=== PATIENT | female | born 1965 | race Caucasian/White ===

== ENCOUNTER 2016-11-07 11:23 | Emergency (ER) | payer BC, MEDICAID ==
[2016-11-07 11:25] VITALS: BMI 36.6
[2016-11-07 11:26] VITALS: RESP 18; TEMP 97.8
[2016-11-07] MEDS ORDERED: Sodium Chloride 0.9% 1,000 ML IV STA (12:01)
[2016-11-07 12:44] LABS: BASO % 0.8 % (0.0-2.0); EOS # 0.3 K/uL (0.0-0.7); EOS % 5.3 % (0.0-4.0); HEMATOCRIT 41.2 % (34.0-47.0); LYMPH # 1.2 K/uL (1.0-4.3); LYMPH % 22.1 % (20.0-40.0); MEAN CELL VOLUME 89.2 fl (81.0-99.0); MEAN CORPUSCULAR HEMOGLOBIN 29.6 pg (27.0-31.0); MEAN CORPUSCULAR HGB CONC 33.2 g/dL (33.0-37.0); MEAN PLATELET VOLUME 8.4 fl (7.2-11.7); MONO # 0.5 K/uL (0.0-0.8); MONO % 8.6 % (0.0-10.0); NEUT # 3.4 K/uL (1.8-7.0); NEUT % 63.2 % (50.0-75.0); RED CELL DISTRIBUTION WIDTH 13.3 % (11.5-14.5); WHITE BLOOD COUNT 5.4 K/uL (4.8-10.8)
[2016-11-07 12:54] LABS: ALB/GLOB RATIO 1.4 (1.0-2.1); ALKALINE PHOSPHATASE 60 U/L (38-126); ALT/SGPT 51 U/L (9-52); AST/SGOT 28 U/L (14-36); BILIRUBIN,TOTAL 0.4 mg/dl (0.2-1.3); BLOOD UREA NITROGEN 9 mg/dl (7-17); CALCIUM 9.3 mg/dL (8.4-10.2); CARBON DIOXIDE 24 mmol/L (22-30); CHLORIDE 105 mmol/L (98-107); GFR AFRICAN-AMERICAN > 60; GLUCOSE,RANDOM 99 mg/dL (65-105); MAGNESIUM 1.9 MG/DL (1.6-2.3); POTASSIUM 3.9 MMOL/L (3.6-5.0); SODIUM 139 mmol/l (132-148); TOTAL PROTEIN 7.3 G/DL (6.3-8.2)
--- NOTE | 2016-11-07 12:57 | ED PDOC ---
HPI: General Adult Time Seen by Provider: 11/07/16 12:00 Chief Complaint (Nursing): Dizziness/Lightheaded Chief Complaint (Provider): dizziness History Per: Patient History/Exam Limitations: no limitations Additional Complaint(s): 51yo F with hx of hypothyroidism in ED for eval of acute dizziness, nausea and DUQUE at 10am this morning after eating a bagel and egg sandwich. pt denies hx of similar in the past. pt states that her BP often fluctuates. now no longer with DUQUE. admits to dizziness-noting the room spinning denies recent viral illness, barotrauma, new medication, food allergies, CP, SOB , neck pain or abd/back pain. family hx of hear disease, HTN and DM. Past Medical History Reviewed: Historical Data, Nursing Documentation, Vital Signs Vital Signs: Last Vital Signs Temp 97.8 F 11/07/16 11:25 Pulse 60 11/07/16 13:27 Resp 18 11/07/16 13:27 BP 124/73 11/07/16 13:27 Pulse Ox 98 11/07/16 13:59 - Medical History PMH: Hypothyroidism - Family History Family History: States: No Known Family Hx - Home Medications Home Medications: Ambulatory Orders Medication Instructions Recorded Meclizine HCl [Motion Sickness 50 mg PO BID #16 tablet 11/07/16 Relief] Ondansetron [Zofran] 4 mg PO Q8H #12 tab 11/07/16 - Allergies Allergies/Adverse Reactions: Allergies Allergy/AdvReac Type Severity Reaction Status Date / Time No Known Allergies Allergy Verified 11/07/16 11:32 Review of Systems ROS Statement: Except As Marked, All Systems Reviewed And Found Negative Constitutional: Positive for: Weakness Eyes: Negative for: Eyelid Inflammation, Redness Gastrointestinal: Positive for: Nausea, Vomiting Neurological: Positive for: Headache, Dizziness Physical Exam - Reviewed Nursing Documentation Reviewed: Yes Vital Signs Reviewed: Yes - Physical Exam Appears: Positive for: Well, Non-toxic, No Acute Distress Head Exam: Positive for: ATRAUMATIC, NORMAL INSPECTION, NORMOCEPHALIC Skin: Positive for: Normal Color, Warm, DRY Eye Exam: Positive for: EOMI, Normal appearance, PERRL ENT: Positive for: Normal ENT Inspection Neck: Positive for: Normal, Painless ROM Cardiovascular/Chest: Positive for: Regular Rate, Rhythm Respiratory: Positive for: CNT, Normal Breath Sounds Gastrointestinal/Abdominal: Positive for: Normal Exam, Bowel Sounds, Soft Back: Positive for: Normal Inspection Extremity: Positive for: Normal ROM Neurologic/Psych: Positive for: Alert, Oriented - Laboratory Results Result Diagrams: 11/07/16 12:35 11/07/16 12:35 - ECG O2 Sat by Pulse Oximetry: 98 Medical Decision Making Medical Decision Making: pt with unremarkable CT scan of head and all labs are WNL. PT advised to f.u with pmd most likely viral PT symptom have improved in ED after MEczline, zofran adn fluids. pt will be Rx meclzline for d/c and zofran PRN advised to return if with worsening symptoms Disposition - Clinical Impression Clinical Impression: Dizziness - Patient ED Disposition Is Patient to be Admitted: No Counseled Patient/Family Regarding: Studies Performed, Diagnosis, Need For Followup, Rx Given - Disposition Disposition: Routine/Home Disposition Time: 14:28 Condition: IMPROVED Prescriptions: Meclizine HCl [Motion Sickness Relief] 50 mg PO BID #16 tablet Ondansetron [Zofran] 4 mg PO Q8H #12 tab Instructions: Vertigo (ED), Dizziness (ED) Forms: [employer] (Greek) Orders - Orders (Non-Med) Orders Category Date Time Status HEAD W/O CONTRAST [CT] Stat CT 11/07/16 12:01 Completed COMP METABOLIC PANEL Stat Chem 11/07/16 12:35 Completed MAGNESIUM Stat Chem 11/07/16 12:35 Completed TROPONIN I Stat Chem 11/07/16 12:35 Completed CBC (WITH DIFFERENTIAL) Stat SARAH BETH 11/07/16 12:35 Completed Meclizine [Antivert] Med 11/07/16 12:11 Discontinued 50 mg PO .STK-MED ONE Meclizine [Antivert] Med 11/07/16 12:01 Discontinued 50 mg PO ONCE ONE Ondansetron [Zofran Inj] Med 11/07/16 12:11 Discontinued 4 mg .ROUTE .STK-MED ONE Ondansetron [Zofran Inj] Med 11/07/16 12:01 Discontinued 4 mg IVP STAT STA Sodium Chloride 0.9% 1,000 ml Med 11/07/16 12:01 Discontinued IV 1,000 mls/hr - Meds (Active ED) Discontinued Medications Sodium Chloride (Sodium Chloride 0.9%) 1,000 mls @ 1,000 mls/hr IV .Q1H STA Stop: 11/07/16 13:00 Last Admin: 11/07/16 12:20 Dose: 1,000 mls/hr Meclizine HCl (Antivert) 50 mg PO ONCE ONE Stop: 11/07/16 12:02 Last Admin: 11/07/16 12:21 Dose: 50 mg Meclizine HCl (Antivert) Confirm Administered Dose 50 mg PO .STK-MED ONE Stop: 11/07/16 12:12 Ondansetron HCl (Zofran Inj) 4 mg IVP STAT STA Stop: 11/07/16 12:02 Last Admin: 11/07/16 12:18 Dose: 4 mg Ondansetron HCl (Zofran Inj) Confirm Administered Dose 4 mg .ROUTE .STK-MED ONE Stop: 11/07/16 12:12
--- NOTE | 2016-11-07 12:58 | CT ---
PROCEDURE: CT HEAD WITHOUT CONTRAST. HISTORY: acute dizziness COMPARISON: None available. TECHNIQUE: Axial computed tomography images were obtained through the head/brain without intravenous contrast. Radiation dose: Total exam DLP = 868.44 mGy-cm. This CT exam was performed using one or more of the following dose reduction techniques: Automated exposure control, adjustment of the mA and/or kV according to patient size, and/or use of iterative reconstruction technique. FINDINGS: The examination is somewhat limited due to patient motion and due to beam hardening artifact likely arising from enlarging posterior to the patient, possibly a cervical collar. HEMORRHAGE: No intracranial hemorrhage. BRAIN: No mass effect or edema. No atrophy or chronic microvascular ischemic changes. There is an incidentally noted dilated perivascular space beneath the left basal ganglia. This does not represent a lacunar infarct. VENTRICLES: Unremarkable. No hydrocephalus. CALVARIUM: Unremarkable. PARANASAL SINUSES: Unremarkable as visualized. No significant inflammatory changes. MASTOID AIR CELLS: Unremarkable as visualized. No inflammatory changes. OTHER FINDINGS: None. IMPRESSION: No intracranial mass, hemorrhage or evidence of acute infarct.
[2016-11-07 15:00] VITALS: BP 122/85; PULSE 65; O2SAT 100
== END 2016-11-07 15:10 | disposition home or self-care (01) ==
LOC: H.ER 11:23
DX: R42 Dizziness and giddiness (principal); R11.0 Nausea; E03.9 Hypothyroidism, unspecified
CPT/HCPCS: 70450; 80053; 81025; 83735; 84484; 85025; 96361; 96374; 99285; J2405; J7040